=== PATIENT | female | born 1965 | race Hispanic/Latino ===

== ENCOUNTER → 2023-01-05 | Outpatient (CLI) | payer OTHER | END | disposition home or self-care (01) | LOC: OIH 09:09 | PROVIDERS: ATTEND Internal Medicine | DX: M47.22 Other spondylosis with radiculopathy, cervical region (principal) | CPT/HCPCS: 72040; 72100 ==

== ENCOUNTER → 2024-12-19 | Outpatient (CLI) | payer OTHER ==
--- NOTE | 2024-12-19 20:21 | HMCIMG ---
EXAM: THORACIC SPINE RADIOGRAPH, 2 VIEWS Technique: Anteroposterior and lateral views of the thoracic spine were obtained. No substantial technical limitations are identified. Clinical Information: Thoracic radiculopathy. Comparison: None. Findings: Alignment: Normal thoracic kyphosis is maintained without spondylolisthesis. Vertebral bodies: The bones appear osteopenic. Vertebral body heights are preserved without compression deformity or acute fracture. Intervertebral disc spaces: Multilevel disc height reduction is present, greatest at the mid to lower thoracic levels. Endplates and osteophytes: Multilevel endplate osteophytic spurring is present consistent with degenerative change. Posterior elements and costovertebral joints: No acute abnormality is identified on the provided projections. Paraspinal soft tissues: No prevertebral or paraspinal soft tissue swelling is identified. Other: No radiopaque foreign body is identified. Impression: * Degenerative thoracic spondylosis with multilevel endplate osteophytes and disc space narrowing. * Osteopenic appearance of the visualized osseous structures without acute fracture or malalignment. * Recommendation: Correlate clinically for thoracic radiculopathy. If symptoms persist or there are neurologic deficits, consider magnetic resonance imaging of the thoracic spine to evaluate for disc herniation, canal or foraminal stenosis. Given osteopenia, consider bone health evaluation as clinically appropriate (for example, dual-energy X-ray absorptiometry and laboratory assessment). /[place]
--- NOTE | 2024-12-19 20:21 | HMCIMG ---
EXAM: RIGHT RIBS RADIOGRAPH, 3 VIEWS Technique: Posteroanterior chest view with right rib detail views including oblique projections were obtained. No substantial technical limitations are identified. Clinical Information: Slipped rib syndrome. Comparison: None. Findings: Bones/joints: No acute right rib fracture or displacement is identified. No focal lytic or sclerotic osseous lesion is seen. Lungs and large airways (visualized portions): A 3 mm calcified nodular focus projects over the right upper lung, consistent with a benign calcified granuloma. No focal airspace consolidation is identified on the included views. Pleura: No pneumothorax or pleural effusion is identified on the provided projections. Soft tissues: No focal soft tissue swelling or subcutaneous emphysema is identified. Impression: * No acute right rib fracture or malalignment identified. No pneumothorax. * Incidental 3 mm calcified pulmonary nodule in the right upper lung, most consistent with a benign calcified granuloma. * Recommendation: If clinical suspicion for slipped rib syndrome persists, consider dynamic ultrasound of the lower costal margin during provocative maneuvers to assess rib tip hypermobility. Computed tomography of the chest without contrast may be considered when occult fracture or alternative osseous pathology is a concern, or if additional thoracic evaluation is clinically warranted. /[place]
== END | disposition home or self-care (01) ==
LOC: RAH 11:09
PROVIDERS: ATTEND Internal Medicine
DX: M47.24 Other spondylosis with radiculopathy, thoracic region (principal); M51.14 Intervertebral disc disorders with radiculopathy, thoracic region; M94.0 Chondrocostal junction syndrome [Tietze]; M25.78 Osteophyte, vertebrae; M48.04 Spinal stenosis, thoracic region; M89.8X8 Other specified disorders of bone, other site
CPT/HCPCS: 71100; 72070

== ENCOUNTER → 2025-02-02 | Outpatient (CLI) | payer OTHER ==
--- NOTE | 2025-02-02 18:08 | HMCIMG ---
EXAM: CR LUMBAR SPINE, 2 VIEWS CLINICAL HISTORY: Lumbar radiculopathy. COMPARISON: None provided TECHNIQUE: Frontal and lateral radiographs of the lumbar spine were obtained. FINDINGS: Vertebrae: Preserved vertebral body height. No fracture. Sacralization of L5. Osteopenia. End plate sclerosis L5-S1 and L4-L5. Vertebral alignment: No spondylolisthesis. There is preservation of the normal lumbar lordosis. Discs: Disc narrowing of L5-S1. Included abdomen: No pathologic calcifications observed. Included bowel gas pattern is non-obstructive. IMPRESSION: 1. Lumbar spondylosis with disc narrowing of L5-S1 and end plate sclerosis at L5-S1 and L4-L5 3. Sacralization of L5 /[place]
== END | disposition home or self-care (01) ==
LOC: RAH 08:39
PROVIDERS: ATTEND Internal Medicine
DX: M47.26 Other spondylosis with radiculopathy, lumbar region (principal); M48.07 Spinal stenosis, lumbosacral region; M25.78 Osteophyte, vertebrae
CPT/HCPCS: 72100